=== PATIENT | male | born 1980 | race African-American/Black ===

== ENCOUNTER 2018-11-02 15:18 | Emergency (ER) | payer MEDICAID ==
[~2018-11-02] VITALS: Ht 172.7 cm; Wt 86.0 kg
[2018-11-02] MEDS ORDERED: IBUPROFEN 800MG TABLET PO ONE (17:45)
[2018-11-02 17:58] VITALS: BP 124/68
== END 2018-11-02 17:59 | disposition home or self-care (01) ==
LOC: ER 15:18
DX: J40 Bronchitis, not specified as acute or chronic (principal)
CPT/HCPCS: 71045; 99283

== ENCOUNTER 2019-07-11 20:10 | Emergency (ER) | payer MEDICAID ==
[~2019-07-11] VITALS: Ht 172.7 cm; Wt 78.0 kg
[2019-07-11] MEDS ORDERED: IPRATROPIUM BROMIDE (0.02%) 0.5MG/2.5ML NEB HHN STA (20:36)
[2019-07-11] MEDS ORDERED: ALBUTEROL (0.083%) 2.5MG/3ML NEB HHN STA (20:36)
[2019-07-12 01:36] VITALS: BP 110/79
== END 2019-07-12 01:42 | disposition home or self-care (01) ==
LOC: ER 20:10
DX: J45.901 Unspecified asthma with (acute) exacerbation (principal)
CPT/HCPCS: 71045; 93005; 94640; 99283; J7611; Z7610

== ENCOUNTER 2023-06-22 10:00 | Emergency (ER) | payer MEDICAID ==
[~2023-06-22] VITALS: Ht 172.7 cm; Wt 79.0 kg
[2023-06-22 10:07] VITALS: O2SAT 99
[2023-06-22] MEDS ORDERED: KETOROLAC 30MG/ML VIAL IM ONE (11:15)
[2023-06-22 12:21] VITALS: BP 127/73
[2023-06-22 12:27] VITALS: PULSE 97; RESP 16; TEMP 99
== END 2023-06-22 12:29 | disposition home or self-care (01) ==
LOC: ER 10:50
DX: M25.531 Pain in right wrist (principal); J45.909 Unspecified asthma, uncomplicated
CPT/HCPCS: 73110; 29125; 96372; 99283; J1885; Z7610 ×2